=== PATIENT | female | born 1995 | race Two or more races ===

== ENCOUNTER → 2016-09-14 | Outpatient (CLI) | payer MEDICAID ==
[~2016-09-14] MED LIST: PREN-145 OR
[2016-09-14 08:56] LABS: Basophils # (auto) 0 uL; Basophils % (auto) 0.4 % (0.0-2.0); Eosinophils # (auto) 0.1 uL; Eosinophils % (auto) 1.4 % (0.0-7.0); Hematocrit 34.9 % (36.0-46.0); Hemoglobin 11.6 g/dL (12.2-16.2); Lymphocytes # (auto) 1.9 uL; Lymphocytes % (auto) 21.1 % (10.0-50.0); Mean Corpuscular Hgb Conc. 33.3 g/dL (32.0-36.0); Mean Platelet Volume 9.8 fL (7.4-10.4); Monocytes # (auto) 0.6 uL; Monocytes % (auto) 6.8 % (0.0-12.0); Neutrophils # (auto) 6.5 uL; Neutrophils % (auto) 70.3 % (37.0-80.0); Platelet Count (auto) 235 10^3/uL (140-450); Red Cell Distribution Width 14.3 % (11.6-16.0); White Blood Cell 9.2 10^3/uL (4.4-10.8)
== END | disposition home or self-care (01) ==
LOC: LAB 08:00
PROVIDERS: ATTEND Obstetrics & Gynecology
DX: O99.810 Abnormal glucose complicating pregnancy (principal); Z34.80 Encounter for supervision of other normal pregnancy, unspecified trimester
CPT/HCPCS: 36415; 82951; 85025

== ENCOUNTER 2016-11-03 12:10 | Observation (INO) | payer MEDICAID ==
[~2016-11-03] VITALS: Ht 152.4 cm; Wt 69.9 kg
[2016-11-03] MEDS ORDERED: ACET1CAP14 PO (12:42)
[2016-11-03] MEDS ORDERED: LACTATED RINGER'S 1,000 ML IV ONE (13:00)
[2016-11-03 13:30] LABS: Urine Bilirubin Negative (Negative); Urine Blood Negative /uL (Negative); Urine Color Yellow (Yellow); Urine Glucose Normal (Normal); Urine Mucus FEW (None Seen); Urine Nitrite Negative (Negative); Urine RBC 3 /hpf (0 - 4); Urine Squamous Epithelial Cell MOD /hpf (<5)
[2016-11-03 13:35] LABS: Urine Ketone 4+ (Negative)
== END 2016-11-03 14:40 | disposition home or self-care (01) | DRG 566 ==
LOC: LDRP 12:10
PROVIDERS: ADMIT Obstetrics & Gynecology; ATTEND Obstetrics & Gynecology
DX: O21.2 Late vomiting of pregnancy (principal); E86.0 Dehydration; O26.893 Other specified pregnancy related conditions, third trimester; K52.9 Noninfective gastroenteritis and colitis, unspecified; Z3A.34 34 weeks gestation of pregnancy; R50.9 Fever, unspecified
CPT/HCPCS: 59025; 81001; 81002; 96360; G0378; 96361

== ENCOUNTER → 2016-11-09 | Outpatient (CLI) | payer MEDICAID ==
[~2016-11-09] MED LIST changes: +ACET1CAP14 PO
[2016-11-09 14:37] LABS: Basophils # (auto) 0 uL; Basophils % (auto) 0.3 % (0.0-2.0); Eosinophils # (auto) 0.1 uL; Eosinophils % (auto) 0.9 % (0.0-7.0); Hemoglobin 11.5 g/dL (12.2-16.2); Lymphocytes # (auto) 1.7 uL; Lymphocytes % (auto) 17.9 % (10.0-50.0); Mean Corpuscular Hgb Conc. 32.8 g/dL (32.0-36.0); Mean Corpuscular Volume 85.4 fL (80.0-100.0); Mean Platelet Volume 8.8 fL (7.4-10.4); Monocytes # (auto) 0.6 uL; Monocytes % (auto) 6.5 % (0.0-12.0); Neutrophils % (auto) 74.4 % (37.0-80.0); Platelet Count (auto) 275 10^3/uL (140-450); White Blood Cell 9.4 10^3/uL (4.4-10.8)
== END | disposition home or self-care (01) ==
LOC: LAB 14:25
PROVIDERS: ATTEND Obstetrics & Gynecology
DX: Z11.3 Encounter for screening for infections with a predominantly sexual mode of transmission (principal); Z34.80 Encounter for supervision of other normal pregnancy, unspecified trimester; N76.0 Acute vaginitis
CPT/HCPCS: 36415; 85025; 87081

== ENCOUNTER 2024-10-17 13:30 | Observation (INO) | payer MEDICAID ==
--- NOTE | 2024-10-17 14:35 | DVH ---
LIMITED OB ULTRASOUND > 14 WKS: HISTORY: post dates 40.6 TECHNIQUE: Multiple real-time grayscale images of the gravid uterus with duplex Doppler color flow an d M-mode spectral analysis. TRANSDUCER: Transabdominal. FINDINGS: IUP single live fetus at 36 weeks 3 days based on composite averages of the BPD, head circumference, abdominal circumference and femur length Estimated weight 2957 grams heart rate 169 beats per minute JUANA 13.3 cm Cervix measures 3.7 cm. Cephalic Presentation Posterior Placenta without previa or abruption. IMPRESSION: IUP single live fetus at 36 weeks 3 days AUA corresponding to an KIERRA of 11/11/2024
--- NOTE | 2024-10-17 15:16 | DVH ---
BIOPHYSICAL PROFILE HISTORY: post dates 40.6 TECHNIQUE: Multiple real-time grayscale sonographic images through the gravid uterus of the fetus wi th duplex Doppler color flow and M-mode spectral analysis FINDINGS: BIOPHYSICAL PROFILE: breathing score: 2 movement score: 2 tone score: 2 Quantitative JUANA score: 2 (JUANA: 15.9 Cm.) Total score: 8 The cervix was not seen Single live fetus in cephalic presentation. heart rate 153 beats per minute. Grade II posterior placenta without previa or abruption IMPRESSION: Biophysical profile score: 8
[2024-10-17 15:52] LABS: Basophils # (auto) 0.1 10 ^3/uL (0-0.2); Basophils % (auto) 0.6 % (0.0-2.0); Eosinophils # (auto) 0.2 10 ^3/uL (0-0.8); Hemoglobin 11.5 g/dL (12.2-16.2); Lymphocytes # (auto) 1.3 10 ^3/uL (0.4-5.4); Lymphocytes % (auto) 13.8 % (10.0-50.0); Mean Corpuscular Hemoglobin 28.3 pg (28.0-32.0); Mean Corpuscular Volume 85.9 fL (80.0-100.0); Monocytes # (auto) 0.6 10 ^3/uL (0-1.3); Monocytes % (auto) 6.7 % (0.0-12.0); Neutrophils # (auto) 7.2 10 ^3/uL (1.6-8.6); Neutrophils % (auto) 76.9 % (37.0-80.0); Nucleated Red Blood Cells % 0.1 %; Platelet Count (auto) 245 10^3/uL (140-450); Red Blood Cells 4.08 10^6/uL (4.0-5.20); Red Cell Distribution Width 15.3 % (11.8-14.3); White Blood Cell 9.4 10^3/uL (4.4-10.8)
[2024-10-17 16:02] LABS: Urine Bacteria FEW /hpf (None Seen); Urine Blood Negative /uL (Negative); Urine Clarity Turbid (Clear); Urine Color Yellow (Yellow); Urine Mucus FEW (None Seen); Urine Protein, UAD 1+ (Negative); Urine Specific Gravity 1.035 (1.001-1.035); Urine Squamous Epithelial Cell MOD /hpf (<5); Urine Urobilinogen Normal (Negative); Urine WBC 14 /HPF (0-5); Urine pH 6.5 (5.0-9.0)
[2024-10-17 16:13] LABS: Albumin 4.1 g/dL (3.2-4.8); Anion Gap 11 (5-15); BUN/Creatinine Ratio 25.6 (10.0-20.0); Bilirubin, Total 0.3 mg/dL (0.2-1.0); Blood Urea Nitrogen 11 mg/dL (9-23); Calcium 10.2 mg/dL (8.7-10.4); Carbon Dioxide 23 mmol/L (20-31); Chloride 105 mmol/L (98-107); Glucose 92 mg/dL (74-106); Potassium 3.7 mmol/L (3.5-5.1); Sodium 139 mmol/L (136-145); Total Protein 6.8 g/dL (5.7-8.2); Uric Acid 5.5 mg/dL (3.1-7.8)
[2024-10-17 16:16] LABS: Alanine Aminotransferase 59 U/L (7-40); Alkaline Phosphatase 145 U/L (46-116); Aspartate Aminotransferase 55 U/L (13-40)
[2024-10-17 16:22] LABS: Amphetamine Screen, Urine Neg (NEGATIVE); Barbiturate Scree,Urine Neg (NEGATIVE); Benzodiazephine Screen, Urine Neg (NEGATIVE); Cannabinoid Screen, Urine Neg (NEGATIVE); Cocaine Screen, Urine Neg (NEGATIVE); Opiate Scree,Urine Neg (NEGATIVE); Phencyclidine Screen, Urine Neg (NEGATIVE)
[2024-10-17 16:28] LABS: INR 0.93 (0.9-1.15); Partial Thromboplastin Time 27.9 SEC (24.5-34.5); Prothrombin Time 9.9 sec (9.3-11.8)
--- NOTE | 2024-10-18 11:52 | DVHDS2 ---
Physician Discharge Progress N Final Diagnosis: cramping 40+wks Operations or Procedures: Operations or Procedures nst 40wks,sono Condition on Discharge: Good Disposition: Home Discharge Instructions: Diet: Regular Activity: No Restrictions, As Tolerated Medications: na Follow Up Care: Specialist: fu in 1 day for induction Discharge Statement: "Patient was advised to return to the ER or call 911 if any headaches, dizziness, shortness of breath, chest pain, abdominal pain, bleeding, fevers, or worsening of medical condition. Patient was counseled about treatment plan, medications, possible side effects, patientverbalized understanding. All questions were answered to the best of my ability. This discharge took greater then 30 minutes in planning, reviewing documentation, counseling the patient, and discussing with other team members." Visit Coding OBGYN Date of Service: Oct 17, 2024 Billing Provider: PETE MONROE DO PNEUMATIC DRUM SANDER Common Visit Codes: [id number] INP/OBS CARE(HIGH) PNEUMATIC DRUM SANDER Procedure Codes: 15424-16- NON-STRESS TEST PETE MONROE DO Oct 18, 2024 11:51
[2024-10-20 19:06] LABS: Rubella Antibodies, IgG 1.03 index (Immune >0.99)
== END 2024-10-17 16:31 | disposition home or self-care (01) ==
LOC: LDRP 13:30
PROVIDERS: ADMIT Obstetrics & Gynecology; ATTEND Obstetrics & Gynecology
DX: O48.0 Post-term pregnancy (principal); O36.8130 Decreased fetal movements, third trimester, not applicable or unspecified; O26.893 Other specified pregnancy related conditions, third trimester; R10.9 Unspecified abdominal pain; Z3A.40 40 weeks gestation of pregnancy; Z79.899 Other long term (current) drug therapy
CPT/HCPCS: 36415; 59025; 76805; 76819; 80053; 80307; 81001; 81002; 84550; 85025; 85610; 85730; 86703; 86762; 86780; 86803; 87340; 94760; G0378

== ENCOUNTER 2024-10-18 23:00 | Inpatient (IN) | payer MEDICAID ==
[~2024-10-18] VITALS: Ht 152.4 cm; Wt 83.0 kg
[2024-10-18] MEDS ORDERED: LIDOCAINE 2%HCL (LOCAL ANESTH.) INJ 20ML MDV IJ PRN (23:30)
[2024-10-19 00:05] LABS: Basophils # (auto) 0.1 10 ^3/uL (0-0.2); Basophils % (auto) 0.6 % (0.0-2.0); Eosinophils # (auto) 0.2 10 ^3/uL (0-0.8); Eosinophils % (auto) 2.3 % (0.0-7.0); Hematocrit 34.7 % (36.0-46.0); Hemoglobin 11.5 g/dL (12.2-16.2); Lymphocytes # (auto) 1.5 10 ^3/uL (0.4-5.4); Lymphocytes % (auto) 15.2 % (10.0-50.0); Mean Corpuscular Hemoglobin 28.1 pg (28.0-32.0); Mean Corpuscular Hgb Conc. 33.1 g/dL (32.0-36.0); Mean Corpuscular Volume 84.9 fL (80.0-100.0); Monocytes # (auto) 0.7 10 ^3/uL (0-1.3); Monocytes % (auto) 7.1 % (0.0-12.0); Neutrophils # (auto) 7.4 10 ^3/uL (1.6-8.6); Neutrophils % (auto) 74.8 % (37.0-80.0); Nucleated Red Blood Cells % 0.1 %; Platelet Count (auto) 284 10^3/uL (140-450); Red Blood Cells 4.08 10^6/uL (4.0-5.20); Red Cell Distribution Width 15.3 % (11.8-14.3); White Blood Cell 9.9 10^3/uL (4.4-10.8)
--- NOTE | 2024-10-19 00:21 | DVHHP2 ---
OB CC & HPI Date Date of Admission: Oct 18, 2024 Patient Identification: : 4 Para: 3 EDC: Oct 11, 2024 EGA: 41weeks Chief Complaints: Reason for admission: induction of labor Indication for induction: post dates Admission Nurse Assessment Rev: Yes History of Present Complaints 29yo G4,3003 @ 41w 0d EGA presents to the Place for IOL. Normal movements, no leakage of fluid or vaginal bleeding, no MILLER or vision changes Received care in [place], [place]. LMP: 01/05/24 EDC: 10/11/24 by LMP c/w 8weeks 6d US Past Medical History Cardiac: No pertinent Hx Pulmonary: No pertinent Hx Central Nervous System: No pertinent Hx GI: No pertinent Hx Hemotology/Oncology: No pertinent Hx Hepatobiliary: No pertinent Hx Psychiatric: No pertinent Hx Musculoskeletal: No pertinent Hx Rheumotologic: No pertinent Hx Infectious Disease: No peritnent Hx ENT: No pertinent Hx Renal/: No pertinent Hx Endocrine: No pertinent Hx Dermatology: No pertinent Hx Past Surgical History: No pertinent Hx OB History OB History Care: Other (Fairly good care in [facility], moved to this [facility] in July. Missed GBS screening ) Ultrasounds: Normal mid trimester US Obstetrical Complications: None Medical Complications: None Allergies: Coded Allergies: NO KNOWN ALLERGIES (Unverified , 12/13/16) Home Meds Reported Medications Acetaminophen (Tylenol) 325 Mg Cap, 325 MG PO, CAP 11/03/16 Vit W/ Ferrous Fumara (PNV FOLIC ACID + IRON MUL) + Iron Tab, 1 IRON OR DAILY, TAB 09/14/14 Current Medications Current Medications Medications (Trade) Dose Ordered Sig/Zohra Route PRN Reason Start Time Stop Time Status Last Admin Lactated Ringer's 1,000 ml @ 125 mls/hr Q8H IV 10/18/24 23:30 Nalbuphine HCl (Nubain) 10 mg Q4HP PRN IV MODERATE PAIN (4-6 PAIN SCALE) 10/18/24 23:30 Penicillin G Potassium [id number] units/Dextrose 50 ml @ 100 mls/hr Q4H IV 10/19/24 03:30 Witch Yari (Tucks) 1 pad PRN PRN TOP PERINEAL AREA DISCOMFORT 10/18/24 23:30 Sodium Lauryl Sulfate (Phisoderm) 240 ml PRN PRN TOP PERINEAL AREA DISCOMFORT 10/18/24 23:30 Benzocaine (Dermoplast) 1 applic PRN PRN TOP PERINEAL AREA DISCOMFORT 10/18/24 23:30 Misoprostol (Cytotec) 50 mcg Q4HPRN PRN PO CERVICAL RIPENING 10/18/24 23:30 Lidocaine HCl (Xylocaine) 40 ml ONCE PRN IJ PERINEAL AREA DISCOMFORT 10/18/24 23:30 Family & Social History Family/Social History Past Family/Social History: Mother with Type 2 diabetes. Son born with hydronephrosis. Blood Type: O+ Rubella: immune RPR/VDRL: Negative GBS Status: Unknown HBsAG: Negative Review of Systems Constitutional: No symptom reported Ears, Nose, & Throat: No symptom reported Eyes: No symptom reported Pulmonary/Respiratory: No symptom reported Cardiovascular: No symptom reported Gastrointestinal: No symptom reported Genitourinary: No symptom reported Musculoskeletal: No symptom reported Skin: No symptom reported Psychiatric: No symptom reported Endocrine: No symptom reported Hemotologic/Lymphatic: No symptom reported OB Admission Exam Physical Exam HEENT: TMs Normal, Fontanelles Normal, Nasal Mucosa Normal, Eyes non-injected, Oropharynx Normal, PERRLA, Moist Membranes, EOMI Heart: Rhythm Normal Lungs: Clear Abdomen: Non tender Extremities: Normal Reflexes: Normal Cervical Dilatation: 1cm Effacement: 25% Station: -3 Membranes: Intact Heart Rate: 140's Accelerations: Accelerations Present Decelerations: No Decelerations Detention Variability: Average (6-25) Contractions on Admission: >10 Minutes Apart OB Plan Plan Admitting Diagnosis: Induction of Labor Plan: Induction Induction Methd: Misoprostol protocol Other Plan: IOL process, cervical ripening with medication, cervical ripening balloon, oxytocin etc including the risks, benefits and options discussed with the patient & partner. Informed consent obtained. Risk of pain, bleeding, infection, discussed with the patient and partner Consent for possible blood transfusion obtained. All questions answered. Admit to Place for scheduled IOL Routine L&D admission orders Misoprostol per protocol EFM per policy & protocol Intrauterine resuscitation PRN GBS prophylaxis with Penicillin IVPB (To be started when in labor; at 4cm cervical dilation) Labor analgesia PRN Encourage frequent position change and ambulation to facilitate labor & d escent Supportive Care Anticipate Managing in collaboration / consultation with Dr. Reynolds Visit Coding OBGYN Date of Service: Oct 18, 2024 Billing Provider: JOEY ALEMAN CNM SPORTS INFORMATION DIRECTOR Common Visit Codes: [id number] INP/OBS CARE (HIGH) SPORTS INFORMATION DIRECTOR Procedure Codes: 76754-05- NON-STRESS TEST JOEY ALEMAN CNM Oct 19, 2024 00:21
[2024-10-19 00:25] LABS: INR 0.93 (0.9-1.15); Prothrombin Time 9.9 sec (9.3-11.8)
[2024-10-19 00:26] LABS: Albumin 4.1 g/dL (3.2-4.8); Anion Gap 11 (5-15); BUN/Creatinine Ratio 15.6 (10.0-20.0); Blood Urea Nitrogen 12 mg/dL (9-23); Calcium 9.3 mg/dL (8.7-10.4); Carbon Dioxide 21 mmol/L (20-31); Potassium 3.5 mmol/L (3.5-5.1); Sodium 139 mmol/L (136-145); Total Protein 6.7 g/dL (5.7-8.2)
[2024-10-19 00:27] LABS: Bilirubin, Total 0.3 mg/dL (0.2-1.0)
[2024-10-19 00:28] LABS: Alanine Aminotransferase 60 U/L (7-40); Alkaline Phosphatase 148 U/L (46-116); Aspartate Aminotransferase 63 U/L (13-40); Chloride 107 mmol/L (98-107); Glucose 117 mg/dL (74-106)
[2024-10-19 00:40] LABS: Urine Bacteria FEW /hpf (None Seen); Urine Blood TRACE /uL (Negative); Urine Clarity Turbid (Clear); Urine Color Yellow (Yellow); Urine Mucus FEW (None Seen); Urine Protein, UAD 1+ (Negative); Urine Specific Gravity 1.039 (1.001-1.035); Urine Squamous Epithelial Cell MOD /hpf (<5); Urine Urobilinogen 2 mg/dL (Negative); Urine WBC 2 /HPF (0-5)
[2024-10-19] MEDS: LACTATED RINGER'S 1,000 ML IV SCH (00:58)
[2024-10-19] MEDS: miSOPROStol 50 MCG per PRE-CUT 1/2 TAB PO PRN (01:00)
[2024-10-19 01:15] LABS: Amphetamine Screen, Urine Neg (NEGATIVE); Barbiturate Scree,Urine Neg (NEGATIVE); Benzodiazephine Screen, Urine Neg (NEGATIVE); Cocaine Screen, Urine Neg (NEGATIVE)
[2024-10-19 01:16] LABS: Cannabinoid Screen, Urine Neg (NEGATIVE); Opiate Scree,Urine Neg (NEGATIVE); Phencyclidine Screen, Urine Neg (NEGATIVE)
[2024-10-19 01:41] LABS: Protein, Urine 45.7 mg/dL (1-14)
[2024-10-19 01:44] LABS: Creatinine, Urine 243.85 mg/dL (30.0-125.0); Urine Protein/Creatinine Ratio 0.19
--- NOTE | 2024-10-19 06:19 | DVHPN2 ---
GAIL Labor Progress Note Date and Time Seen Date Seen: Oct 19, 2024 Time Seen: 05:00 Subjective Patient reports: No new complaints Objective Vital Signs VSS Monitoring Method Monitoring Method: External Heart Rate Heart Rate Baseline: 130 Heart Rate Variability: Moderate Presence of FHR Accelerations: Yes Presence of FHR Decelerations: No Changes in Trends of Patterns: No Are all 5 Components of the FH: Yes Contractions Contractions Frequency: Other (3-6 in 10minutes) Duration of Contraction: 80 Contractions Intensity: Moderate Contractions Resting Tone: Relaxed Membranes Membranes: Intact Vaginal Exam Vag Exam Deferred: No Vaginal Exam Dilation: 2 Vaginal Exam Effacement: 50 Vaginal Exam Station: -1 Vaginal Exam Presentation: VTX Vaginal Exam Show: None Medications Medications - Pitocin: No Medication - Epidural: No Medication - Other Misoprostol Dose #1 given at 01:00 Lab Results Lab Results Current Medications Medications (Trade) Dose Ordered Sig/Zohra Start Time Stop Time Status Last Admin Dose Admin Lactated Ringer's 1,000 ml @ 125 mls/hr Q8H 10/18/24 23:30 10/19/24 08:55 125 MLS/HR Nalbuphine HCl (Nubain) 10 mg Q4HP PRN 10/18/24 23:30 Penicillin G Potassium 50 ml @ 100 mls/hr ONCE ONCE 10/18/24 23:30 10/18/24 23:59 DC 10/19/24 08:54 100 MLS/HR Penicillin G Potassium 1197837 units/Dextrose 50 ml @ 100 mls/hr Q4H 10/19/24 03:30 10/19/24 13:34 DC 10/19/24 13:28 100 MLS/HR Witch Yari (Tucks) 1 pad PRN PRN 10/18/24 23:30 10/19/24 08:54 1 PAD Sodium Lauryl Sulfate (Phisoderm) 240 ml PRN PRN 10/18/24 23:30 10/19/24 08:54 240 ML Benzocaine (Dermoplast) 1 applic PRN PRN 10/18/24 23:30 10/19/24 08:54 1 APPLIC Misoprostol (Cytotec) 50 mcg Q4HPRN PRN 10/18/24 23:30 10/19/24 01:00 50 MCG Lidocaine HCl (Xylocaine) 40 ml ONCE PRN 10/18/24 23:30 Diphenoxylate HCl/ Atropine (Lomotil Tablet) 5 mg ONCE ONCE 10/19/24 07:15 10/19/24 07:57 DC 10/19/24 08:30 5 MG Oxytocin 1,000 ml @ 6 ml/hr Q24H 10/19/24 12:15 10/19/24 13:04 6 ML/HR Terbutaline Sulfate (Brethine Inj) 0.25 mg ONCE PRN 10/19/24 12:15 Oxytocin 500 ml @ 999 mls/hr Q31M ONCE 10/19/24 12:15 10/19/24 12:45 DC Oxytocin 500 ml @ 125 mls/hr Q4H ONCE 10/19/24 12:45 10/19/24 16:44 DC Penicillin G Potassium 1498721 units/Dextrose 50 ml @ 100 mls/hr Q4H 10/19/24 17:30 10/19/24 17:47 100 MLS/HR Laboratory Tests Test 10/19/24 08:32 10/18/24 23:40 Range/Units Sodium Level 140 136-145 mmol/L Potassium Level 3.8 3.5-5.1 mmol/L Chloride Level 107 98-107 mmol/L Carbon Dioxide Level 22 20-31 mmol/L Anion Gap 11 5-15 Blood Urea Nitrogen 8 L 9-23 mg/dL Creatinine 0.66 0.550-1.02 mg/dL Glomerular Filtration Rate Calc 121 >90 mL/min BUN/Creatinine Ratio 12.1 10.0-20.0 Serum Glucose 104 74-106 mg/dL Uric Acid 5.8 3.1-7.8 mg/dL Calcium Level 9.7 8.7-10.4 mg/dL Total Bilirubin 0.4 0.2-1.0 mg/dL Aspartate Amino Transferase (AST) 55 H 13-40 U/L Alanine Aminotransferase (ALT) 59 H 7-40 U/L Alkaline Phosphatase 161 H 46-116 U/L Total Protein 7.1 5.7-8.2 g/dL Albumin 4.2 3.2-4.8 g/dL White Blood Count 9.9 4.4-10.8 10^3/uL Red Blood Count 4.08 4.0-5.20 10^6/uL Hemoglobin 11.5 L 12.2-16.2 g/dL Hematocrit 34.7 L 36.0-46.0 % Mean Corpuscular Volume 84.9 80.0-100.0 fL Mean Corpuscular Hemoglobin 28.1 28.0-32.0 pg Mean Corpuscular Hemoglobin Concent 33.1 32.0-36.0 g/dL Red Cell Distribution Width 15.3 H 11.8-14.3 % Platelet Count 284 140-450 10^3/uL Mean Platelet Volume 9.8 6.9-10.8 fL Neutrophils (%) (Auto) 74.8 37.0-80.0 % Lymphocytes (%) (Auto) 15.2 10.0-50.0 % Monocytes (%) (Auto) 7.1 0.0-12.0 % Eosinophils (%) (Auto) 2.3 0.0-7.0 % Basophils (%) (Auto) 0.6 0.0-2.0 % Neutrophils # (Auto) 7.4 1.6-8.6 10 ^3/uL Lymphocytes # (Auto) 1.5 0.4-5.4 10 ^3/uL Monocytes # (Auto) 0.7 0-1.3 10 ^3/uL Eosinophils # (Auto) 0.2 0-0.8 10 ^3/uL Basophils # (Auto) 0.1 0-0.2 10 ^3/uL Nucleated Red Blood Cells 0.1 % Prothrombin Time 9.9 9.3-11.8 sec Prothrombin Time INR 0.93 0.9-1.15 Activated Partial Thromboplast Time 27.0 24.5-34.5 SEC Urine Color Yellow Yellow Urine Clarity Turbid H Clear Urine pH 6.0 5.0-9.0 Urine Specific [place] 1.039 H 1.001-1.035 Urine Protein 1+ H Negative Urine Ketones 1+ H Negative Urine Blood Trace H Negative /uL Urine Nitrite Negative Negative Urine Bilirubin Negative Negative Urine Urobilinogen 2 H Negative mg/dL Urine Leukocyte Esterase Negative Negative /uL Urine RBC 3 0 - 4 /hpf Urine Microscopic WBC 2 0-5 /HPF Urine Squamous Epithelial Cells Mod <5 /hpf Urine Calcium Oxalate Crystals Mod None Seen Urine Bacteria Few H None Seen /hpf Urine Mucus Few None Seen Urine Creatinine 243.85 H 30.0-125.0 mg/dL Urine Protein/Creatinine Ratio 0.19 Urine Glucose Normal Normal mg/dL Urine Total Protein 45.7 H 1-14 mg/dL Urine Opiates Screen Neg NEGATIVE Urine Fentanyl Screen Neg NEGATIVE Urine Barbiturates Screen Neg NEGATIVE Urine Phencyclidine Screen Neg NEGATIVE Urine Amphetamines Screen Neg NEGATIVE Urine Benzodiazepines Screen Neg NEGATIVE Urine Cocaine Screen Neg NEGATIVE Urine Cannabinoids Screen Neg NEGATIVE Chlamydia trachomatis (PRECIOUS) Pending Neisseria gonorrhoeae (PRECIOUS) Pending Assessment Assessment IUP at 41weeks IOL for above Category 1 FHR Tracing Plan Plan Continue current management plan. Supportive care Anticipate Will consult with Dr Gail DONALDSON Plan discussed with: Patient Visit Coding OBGYN Date of Service: Oct 19, 2024 Billing Provider: JOEY ALEMAN CNM INDUSTRIAL X RAY OPERATOR Common Visit Codes: [id number] INP/OBS CARE(HIGH) INDUSTRIAL X RAY OPERATOR Procedure Codes: 35083-77- NON-STRESS TEST JOEY ALEMAN CNM Oct 19, 2024 06:19
--- NOTE | 2024-10-19 06:54 | DVHPN2 ---
Chief Complaints Patient reports: No new complaints Nursing reports: No new complaints Objective Medications Current Medications Medications (Trade) Dose Ordered Sig/Zohra Route PRN Reason Start Time Stop Time Status Last Admin Benzocaine (Dermoplast) 1 applic PRN PRN TOP PERINEAL AREA DISCOMFORT 10/18/24 23:30 Lactated Ringer's 1,000 ml @ 125 mls/hr Q8H IV 10/18/24 23:30 10/19/24 02:15 Lidocaine HCl (Xylocaine) 40 ml ONCE PRN IJ PERINEAL AREA DISCOMFORT 10/18/24 23:30 Misoprostol (Cytotec) 50 mcg Q4HPRN PRN PO CERVICAL RIPENING 10/18/24 23:30 10/19/24 01:00 Nalbuphine HCl (Nubain) 10 mg Q4HP PRN IV MODERATE PAIN (4-6 PAIN SCALE) 10/18/24 23:30 Penicillin G Potassium 8004163 units/Dextrose 50 ml @ 100 mls/hr Q4H IV 10/19/24 03:30 Sodium Lauryl Sulfate (Phisoderm) 240 ml PRN PRN TOP PERINEAL AREA DISCOMFORT 10/18/24 23:30 Witch Yari (Tucks) 1 pad PRN PRN TOP PERINEAL AREA DISCOMFORT 10/18/24 23:30 Others ve-2cm/60/-2 Studies Laboratory Tests 10/18/24 23:40 Test 10/18/24 23:40 Range/Units Serum Glucose 117 H 74-106 mg/dL Ass/Plan Assessment iol Plan rec 2 cytotec Visit Coding OBGYN Date of Service: Oct 19, 2024 Billing Provider: PETE MONROE DO BIAS CUTTING MACHINE OPERATOR VERTICAL Common Visit Codes: 65329-MHE/OBS SAME DATE (HIGH) BIAS CUTTING MACHINE OPERATOR VERTICAL Procedure Codes: 15977-58- NON-STRESS TEST PETE MONROE DO Oct 19, 2024 06:54
[2024-10-19] MEDS: DIPHENOXYLATE W/ATROPINE 2.5 MG TAB PO ONE (08:30)
[2024-10-19] MEDS: PHISODERM TOP SOLN 240ML BTL TOP PRN (08:54)
[2024-10-19] MEDS: WITCH HAZEL-GLYCERIN PAD TOP PRN (08:54)
[2024-10-19] MEDS: PENICILLIN G POT 5MIL/D5 50ML 50 ML IV ONE (08:54)
[2024-10-19] MEDS: DERMOPLAST 60ML BOTTLE TOP PRN (08:54)
[2024-10-19 09:40] LABS: Albumin 4.2 g/dL (3.2-4.8); Anion Gap 11 (5-15); BUN/Creatinine Ratio 12.1 (10.0-20.0); Calcium 9.7 mg/dL (8.7-10.4); Carbon Dioxide 22 mmol/L (20-31); Chloride 107 mmol/L (98-107); Glucose 104 mg/dL (74-106); Potassium 3.8 mmol/L (3.5-5.1); Sodium 140 mmol/L (136-145); Total Protein 7.1 g/dL (5.7-8.2)
[2024-10-19 09:41] LABS: Bilirubin, Total 0.4 mg/dL (0.2-1.0)
[2024-10-19 09:48] LABS: Alanine Aminotransferase 59 U/L (7-40); Alkaline Phosphatase 161 U/L (46-116); Aspartate Aminotransferase 55 U/L (13-40); Blood Urea Nitrogen 8 mg/dL (9-23)
[2024-10-19 09:57] LABS: Uric Acid 5.8 mg/dL (3.1-7.8)
[2024-10-19] MEDS ORDERED: TERBUTALINE SULFATE 1 MG/ML 1ML VIAL SC PRN (12:15)
[2024-10-19] MEDS: LACT. RINGERS/OXYTOCIN 20UNITS 1,000 ML IV SCH (13:04)
[2024-10-19] MEDS: PENICILLIN G POTASSIUM 2,500,000 UNITS in D5W 5% 50 ML IV SCH ×2 (13:28→17:47)
--- NOTE | 2024-10-19 13:56 | DVHPN2 ---
Chief Complaints Patient reports: No new complaints Nursing reports: No new complaints Objective Medications Current Medications Medications (Trade) Dose Ordered Sig/Zohra Route PRN Reason Start Time Stop Time Status Last Admin Benzocaine (Dermoplast) 1 applic PRN PRN TOP PERINEAL AREA DISCOMFORT 10/18/24 23:30 10/19/24 08:54 Lactated Ringer's 1,000 ml @ 125 mls/hr Q8H IV 10/18/24 23:30 10/19/24 08:55 Lidocaine HCl (Xylocaine) 40 ml ONCE PRN IJ PERINEAL AREA DISCOMFORT 10/18/24 23:30 Misoprostol (Cytotec) 50 mcg Q4HPRN PRN PO CERVICAL RIPENING 10/18/24 23:30 10/19/24 01:00 Nalbuphine HCl (Nubain) 10 mg Q4HP PRN IV MODERATE PAIN (4-6 PAIN SCALE) 10/18/24 23:30 Oxytocin 1,000 ml @ 6 ml/hr Q24H IV 10/19/24 12:15 10/19/24 13:04 Penicillin G Potassium 2587694 units/Dextrose 50 ml @ 100 mls/hr Q4H IV 10/19/24 17:30 UNV Sodium Lauryl Sulfate (Phisoderm) 240 ml PRN PRN TOP PERINEAL AREA DISCOMFORT 10/18/24 23:30 10/19/24 08:54 Terbutaline Sulfate (Brethine Inj) 0.25 mg ONCE PRN SC Uterine tachysystole 10/19/24 12:15 Witch Yari (Tucks) 1 pad PRN PRN TOP PERINEAL AREA DISCOMFORT 10/18/24 23:30 10/19/24 08:54 Others VE-3CM/60/-2 Studies Laboratory Tests 10/19/24 08:32 10/18/24 23:40 Test 10/19/24 08:32 Range/Units Serum Glucose 104 74-106 mg/dL Ass/Plan Assessment iol Plan CONT W/PITOCIN Visit Coding OBGYN Date of Service: Oct 19, 2024 Billing Provider: PETE MONROE DO MASH TUB COOKER Common Visit Codes: 21206-PCC/OBS SAME DATE (HIGH) MASH TUB COOKER Procedure Codes: 38341-02- NON-STRESS TEST PETE MONROE DO Oct 19, 2024 13:56
--- NOTE | 2024-10-19 20:17 | DVHPN2 ---
GAIL Labor Progress Note Date and Time Seen Date Seen: Oct 19, 2024 Time Seen: 19:05 Subjective Patient reports: No new complaints Objective Vital Signs VSS Monitoring Method Monitoring Method: External Heart Rate Heart Rate Baseline: 145 Heart Rate Variability: Moderate Presence of FHR Accelerations: Yes Presence of FHR Decelerations: No Changes in Trends of Patterns: No Are all 5 Components of the FH: Yes Contractions Contractions Frequency: Other (Q 1-4minutes) Duration of Contraction: 60 Contractions Intensity: Moderate Contractions Resting Tone: Relaxed Membranes Membranes: Intact Vaginal Exam Vag Exam Deferred: Yes Medications Medications - Pitocin: Yes (@ 8mU/minute) Medication - Epidural: No Lab Results Lab Results Vital Signs Date Time Temp Pulse Resp B/P (MAP) Pulse Ox O2 Delivery O2 Flow Rate FiO2 10/20/24 05:24 Room Air 10/19/24 23:00 82 19 111/64 I & O 10/20/24 07:00 Intake Total 100 ml Balance 100 ml Intake IV Total 100 ml Current Medications Medications (Trade) Dose Ordered Sig/Zohra Start Time Stop Time Status Last Admin Dose Admin Lactated Ringer's 1,000 ml @ 125 mls/hr Q8H 10/18/24 23:30 10/20/24 03:24 125 MLS/HR Nalbuphine HCl (Nubain) 10 mg Q4HP PRN 10/18/24 23:30 10/20/24 03:30 DC 10/19/24 22:25 10 MG Penicillin G Potassium 50 ml @ 100 mls/hr ONCE ONCE 10/18/24 23:30 10/18/24 23:59 DC 10/19/24 08:54 100 MLS/HR Penicillin G Potassium [id number] units/Dextrose 50 ml @ 100 mls/hr Q4H 10/19/24 03:30 10/19/24 13:34 DC 10/19/24 13:28 100 MLS/HR Witch Yari (Tucks) 1 pad PRN PRN 10/18/24 23:30 10/19/24 08:54 1 PAD Sodium Lauryl Sulfate (Phisoderm) 240 ml PRN PRN 10/18/24 23:30 10/19/24 08:54 240 ML Benzocaine (Dermoplast) 1 applic PRN PRN 10/18/24 23:30 10/19/24 08:54 1 APPLIC Misoprostol (Cytotec) 50 mcg Q4HPRN PRN 10/18/24 23:30 10/20/24 03:30 DC 10/19/24 01:00 50 MCG Diphenoxylate HCl/ Atropine (Lomotil Tablet) 5 mg ONCE ONCE 10/19/24 07:15 10/20/24 03:30 DC 10/19/24 08:30 5 MG Oxytocin 1,000 ml @ 6 ml/hr Q24H 10/19/24 12:15 10/20/24 03:30 DC 10/19/24 13:04 6 ML/HR Oxytocin 500 ml @ 999 mls/hr Q31M ONCE 10/19/24 12:15 10/20/24 03:30 DC 10/20/24 03:22 999 MLS/HR Oxytocin 500 ml @ 125 mls/hr Q4H ONCE 10/19/24 12:45 10/20/24 03:30 DC 10/20/24 03:23 125 MLS/HR Penicillin G Potassium 0796602 units/Dextrose 50 ml @ 100 mls/hr Q4H 10/19/24 17:30 10/20/24 03:30 DC 10/19/24 21:41 100 MLS/HR Acetaminophen (Tylenol Tablet) 650 mg ONCE ONCE 10/19/24 21:30 10/20/24 03:30 DC 10/19/24 21:40 650 MG Methylergonovine Maleate (Methergine) 0.2 mg ONCE ONCE 10/20/24 00:30 10/20/24 03:30 DC Naloxone HCl (Narcan) 0.2 mg PRN ONCE 10/20/24 02:00 10/20/24 03:30 DC Ephedrine Sulfate (ePHEDrine SULFATE) 10 mg PRN ONCE 10/20/24 02:00 10/20/24 03:30 DC Fentanyl Citrate 200 mcg ONCE ONCE 10/20/24 02:00 10/20/24 03:30 DC Lactated Ringer's 500 ml @ 500 mls/hr Q1H ONCE 10/20/24 02:00 10/20/24 03:30 DC Ibuprofen (Motrin Tablet) 600 mg Q6HP PRN 10/20/24 04:00 10/20/24 05:16 600 MG Acetaminophen (Tylenol Tablet) 650 mg Q4HP PRN 10/20/24 04:00 Ondansetron HCl (Zofran) 4 mg Q4HP PRN 10/20/24 04:00 Docusate Sodium (Colace Capsule) 200 mg HS 10/20/24 22:00 Laboratory Tests Test 10/19/24 08:32 10/18/24 23:40 Range/Units Sodium Level 140 136-145 mmol/L Potassium Level 3.8 3.5-5.1 mmol/L Chloride Level 107 98-107 mmol/L Carbon Dioxide Level 22 20-31 mmol/L Anion Gap 11 5-15 Blood Urea Nitrogen 8 L 9-23 mg/dL Creatinine 0.66 0.550-1.02 mg/dL Glomerular Filtration Rate Calc 121 >90 mL/min BUN/Creatinine Ratio 12.1 10.0-20.0 Serum Glucose 104 74-106 mg/dL Uric Acid 5.8 3.1-7.8 mg/dL Calcium Level 9.7 8.7-10.4 mg/dL Total Bilirubin 0.4 0.2-1.0 mg/dL Aspartate Amino Transferase (AST) 55 H 13-40 U/L Alanine Aminotransferase (ALT) 59 H 7-40 U/L Alkaline Phosphatase 161 H 46-116 U/L Total Protein 7.1 5.7-8.2 g/dL Albumin 4.2 3.2-4.8 g/dL White Blood Count 9.9 4.4-10.8 10^3/uL Red Blood Count 4.08 4.0-5.20 10^6/uL Hemoglobin 11.5 L 12.2-16.2 g/dL Hematocrit 34.7 L 36.0-46.0 % Mean Corpuscular Volume 84.9 80.0-100.0 fL Mean Corpuscular Hemoglobin 28.1 28.0-32.0 pg Mean Corpuscular Hemoglobin Concent 33.1 32.0-36.0 g/dL Red Cell Distribution Width 15.3 H 11.8-14.3 % Platelet Count 284 140-450 10^3/uL Mean Platelet Volume 9.8 6.9-10.8 fL Neutrophils (%) (Auto) 74.8 37.0-80.0 % Lymphocytes (%) (Auto) 15.2 10.0-50.0 % Monocytes (%) (Auto) 7.1 0.0-12.0 % Eosinophils (%) (Auto) 2.3 0.0-7.0 % Basophils (%) (Auto) 0.6 0.0-2.0 % Neutrophils # (Auto) 7.4 1.6-8.6 10 ^3/uL Lymphocytes # (Auto) 1.5 0.4-5.4 10 ^3/uL Monocytes # (Auto) 0.7 0-1.3 10 ^3/uL Eosinophils # (Auto) 0.2 0-0.8 10 ^3/uL Basophils # (Auto) 0.1 0-0.2 10 ^3/uL Nucleated Red Blood Cells 0.1 % Prothrombin Time 9.9 9.3-11.8 sec Prothrombin Time INR 0.93 0.9-1.15 Activated Partial Thromboplast Time 27.0 24.5-34.5 SEC Urine Color Yellow Yellow Urine Clarity Turbid H Clear Urine pH 6.0 5.0-9.0 Urine Specific [place] 1.039 H 1.001-1.035 Urine Protein 1+ H Negative Urine Ketones 1+ H Negative Urine Blood Trace H Negative /uL Urine Nitrite Negative Negative Urine Bilirubin Negative Negative Urine Urobilinogen 2 H Negative mg/dL Urine Leukocyte Esterase Negative Negative /uL Urine RBC 3 0 - 4 /hpf Urine Microscopic WBC 2 0-5 /HPF Urine Squamous Epithelial Cells Mod <5 /hpf Urine Calcium Oxalate Crystals Mod None Seen Urine Bacteria Few H None Seen /hpf Urine Mucus Few None Seen Urine Creatinine 243.85 H 30.0-125.0 mg/dL Urine Protein/Creatinine Ratio 0.19 Urine Glucose Normal Normal mg/dL Urine Total Protein 45.7 H 1-14 mg/dL Urine Opiates Screen Neg NEGATIVE Urine Fentanyl Screen Neg NEGATIVE Urine Barbiturates Screen Neg NEGATIVE Urine Phencyclidine Screen Neg NEGATIVE Urine Amphetamines Screen Neg NEGATIVE Urine Benzodiazepines Screen Neg NEGATIVE Urine Cocaine Screen Neg NEGATIVE Urine Cannabinoids Screen Neg NEGATIVE Chlamydia trachomatis (PRECIOUS) Pending Neisseria gonorrhoeae (PRECIOUS) Pending Assessment Assessment IUP at 41w 1d IOL Category 1 FHR Tracing Plan Plan Continue Oxytocin per policy Intrauterine resuscitation PRN Labor analgesia / anesthesia PRN Frequent position change to facilitate labor and descent Supportive care Will consult with Dr Gail DONALDSON Plan discussed with: Patient, Spouse Visit Coding OBGYN Date of Service: Oct 19, 2024 Billing Provider: JOEY ALEMAN CNM COMPLETION SUPERVISOR Common Visit Codes: [id number] INP/OBS CARE(HIGH) COMPLETION SUPERVISOR Procedure Codes: 00399-99- NON-STRESS TEST JOEY ALEMAN CNM Oct 19, 2024 20:17
[2024-10-19] MEDS: ACETAMINOPHEN 325 MG TAB PO ONE (21:40)
[2024-10-19] MEDS: NALBUPHINE HCL 10 MG/1ml INJECTION IV PRN (22:25)
--- NOTE | 2024-10-19 23:28 | DVHPN2 ---
CNM Labor Progress Note Date and Time Seen Date Seen: Oct 19, 2024 Time Seen: 22:00 Subjective Patient reports: No new complaints, Other (Feeling MILLER and contraction pain now stronger. Denies any vision changes, or epigastric pain) Subjective Comment Patient reports feeling MILLER and contraction pain now stronger. Denies any vision changes, or epigastric pain Objective Vital Signs VSS Monitoring Method Monitoring Method: External Heart Rate Heart Rate Baseline: 135 Heart Rate Variability: Moderate Presence of FHR Accelerations: Yes Presence of FHR Decelerations: No Changes in Trends of Patterns: No Are all 5 Components of the FH: Yes Contractions Contractions Frequency: None Duration of Contraction: 70 Contractions Intensity: Moderate Contractions Resting Tone: Relaxed Membranes Membranes: Intact Vaginal Exam Vaginal Exam Dilation: 3 Vaginal Exam Effacement: 50 Vaginal Exam Station: -2 Vaginal Exam Presentation: VTX Vaginal Exam Show: None Medications Medications - Pitocin: Yes Medication - Epidural: No Medication - Other Acetaminophen Nalbuphine hydrochloride Lab Results Lab Results Vital Signs Date Time Temp Pulse Resp B/P (MAP) Pulse Ox O2 Delivery O2 Flow Rate FiO2 10/20/24 05:24 Room Air 10/19/24 23:00 82 19 111/64 I & O 10/20/24 07:00 Intake Total 100 ml Balance 100 ml Intake IV Total 100 ml Current Medications Medications (Trade) Dose Ordered Sig/Zohra Start Time Stop Time Status Last Admin Dose Admin Lactated Ringer's 1,000 ml @ 125 mls/hr Q8H 10/18/24 23:30 10/20/24 03:24 125 MLS/HR Nalbuphine HCl (Nubain) 10 mg Q4HP PRN 10/18/24 23:30 10/20/24 03:30 DC 10/19/24 22:25 10 MG Penicillin G Potassium 50 ml @ 100 mls/hr ONCE ONCE 10/18/24 23:30 10/18/24 23:59 DC 10/19/24 08:54 100 MLS/HR Penicillin G Potassium [id number] units/Dextrose 50 ml @ 100 mls/hr Q4H 10/19/24 03:30 10/19/24 13:34 DC 10/19/24 13:28 100 MLS/HR Liza Greenberg (Arian) 1 pad PRN PRN 10/18/24 23:30 10/19/24 08:54 1 PAD Sodium Lauryl Sulfate (Phisoderm) 240 ml PRN PRN 10/18/24 23:30 10/19/24 08:54 240 ML Benzocaine (Dermoplast) 1 applic PRN PRN 10/18/24 23:30 10/19/24 08:54 1 APPLIC Misoprostol (Cytotec) 50 mcg Q4HPRN PRN 10/18/24 23:30 10/20/24 03:30 DC 10/19/24 01:00 50 MCG Diphenoxylate HCl/ Atropine (Lomotil Tablet) 5 mg ONCE ONCE 10/19/24 07:15 10/20/24 03:30 DC 10/19/24 08:30 5 MG Oxytocin 1,000 ml @ 6 ml/hr Q24H 10/19/24 12:15 10/20/24 03:30 DC 10/19/24 13:04 6 ML/HR Oxytocin 500 ml @ 999 mls/hr Q31M ONCE 10/19/24 12:15 10/20/24 03:30 DC 10/20/24 03:22 999 MLS/HR Oxytocin 500 ml @ 125 mls/hr Q4H ONCE 10/19/24 12:45 10/20/24 03:30 DC 10/20/24 03:23 125 MLS/HR Penicillin G Potassium [id number] units/Dextrose 50 ml @ 100 mls/hr Q4H 10/19/24 17:30 10/20/24 03:30 DC 10/19/24 21:41 100 MLS/HR Acetaminophen (Tylenol Tablet) 650 mg ONCE ONCE 10/19/24 21:30 10/20/24 03:30 DC 10/19/24 21:40 650 MG Methylergonovine Maleate (Methergine) 0.2 mg ONCE ONCE 10/20/24 00:30 10/20/24 03:30 DC Naloxone HCl (Narcan) 0.2 mg PRN ONCE 10/20/24 02:00 10/20/24 03:30 DC Ephedrine Sulfate (ePHEDrine SULFATE) 10 mg PRN ONCE 10/20/24 02:00 10/20/24 03:30 DC Fentanyl Citrate 200 mcg ONCE ONCE 10/20/24 02:00 10/20/24 03:30 DC Lactated Ringer's 500 ml @ 500 mls/hr Q1H ONCE 10/20/24 02:00 10/20/24 03:30 DC Ibuprofen (Motrin Tablet) 600 mg Q6HP PRN 10/20/24 04:00 10/20/24 05:16 600 MG Acetaminophen (Tylenol Tablet) 650 mg Q4HP PRN 10/20/24 04:00 Ondansetron HCl (Zofran) 4 mg Q4HP PRN 10/20/24 04:00 Docusate Sodium (Colace Capsule) 200 mg HS 10/20/24 22:00 Laboratory Tests Test 10/19/24 08:32 10/18/24 23:40 Range/Units Sodium Level 140 136-145 mmol/L Potassium Level 3.8 3.5-5.1 mmol/L Chloride Level 107 98-107 mmol/L Carbon Dioxide Level 22 20-31 mmol/L Anion Gap 11 5-15 Blood Urea Nitrogen 8 L 9-23 mg/dL Creatinine 0.66 0.550-1.02 mg/dL Glomerular Filtration Rate Calc 121 >90 mL/min BUN/Creatinine Ratio 12.1 10.0-20.0 Serum Glucose 104 74-106 mg/dL Uric Acid 5.8 3.1-7.8 mg/dL Calcium Level 9.7 8.7-10.4 mg/dL Total Bilirubin 0.4 0.2-1.0 mg/dL Aspartate Amino Transferase (AST) 55 H 13-40 U/L Alanine Aminotransferase (ALT) 59 H 7-40 U/L Alkaline Phosphatase 161 H 46-116 U/L Total Protein 7.1 5.7-8.2 g/dL Albumin 4.2 3.2-4.8 g/dL White Blood Count 9.9 4.4-10.8 10^3/uL Red Blood Count 4.08 4.0-5.20 10^6/uL Hemoglobin 11.5 L 12.2-16.2 g/dL Hematocrit 34.7 L 36.0-46.0 % Mean Corpuscular Volume 84.9 80.0-100.0 fL Mean Corpuscular Hemoglobin 28.1 28.0-32.0 pg Mean Corpuscular Hemoglobin Concent 33.1 32.0-36.0 g/dL Red Cell Distribution Width 15.3 H 11.8-14.3 % Platelet Count 284 140-450 10^3/uL Mean Platelet Volume 9.8 6.9-10.8 fL Neutrophils (%) (Auto) 74.8 37.0-80.0 % Lymphocytes (%) (Auto) 15.2 10.0-50.0 % Monocytes (%) (Auto) 7.1 0.0-12.0 % Eosinophils (%) (Auto) 2.3 0.0-7.0 % Basophils (%) (Auto) 0.6 0.0-2.0 % Neutrophils # (Auto) 7.4 1.6-8.6 10 ^3/uL Lymphocytes # (Auto) 1.5 0.4-5.4 10 ^3/uL Monocytes # (Auto) 0.7 0-1.3 10 ^3/uL Eosinophils # (Auto) 0.2 0-0.8 10 ^3/uL Basophils # (Auto) 0.1 0-0.2 10 ^3/uL Nucleated Red Blood Cells 0.1 % Prothrombin Time 9.9 9.3-11.8 sec Prothrombin Time INR 0.93 0.9-1.15 Activated Partial Thromboplast Time 27.0 24.5-34.5 SEC Urine Color Yellow Yellow Urine Clarity Turbid H Clear Urine pH 6.0 5.0-9.0 Urine Specific [place] 1.039 H 1.001-1.035 Urine Protein 1+ H Negative Urine Ketones 1+ H Negative Urine Blood Trace H Negative /uL Urine Nitrite Negative Negative Urine Bilirubin Negative Negative Urine Urobilinogen 2 H Negative mg/dL Urine Leukocyte Esterase Negative Negative /uL Urine RBC 3 0 - 4 /hpf Urine Microscopic WBC 2 0-5 /HPF Urine Squamous Epithelial Cells Mod <5 /hpf Urine Calcium Oxalate Crystals Mod None Seen Urine Bacteria Few H None Seen /hpf Urine Mucus Few None Seen Urine Creatinine 243.85 H 30.0-125.0 mg/dL Urine Protein/Creatinine Ratio 0.19 Urine Glucose Normal Normal mg/dL Urine Total Protein 45.7 H 1-14 mg/dL Urine Opiates Screen Neg NEGATIVE Urine Fentanyl Screen Neg NEGATIVE Urine Barbiturates Screen Neg NEGATIVE Urine Phencyclidine Screen Neg NEGATIVE Urine Amphetamines Screen Neg NEGATIVE Urine Benzodiazepines Screen Neg NEGATIVE Urine Cocaine Screen Neg NEGATIVE Urine Cannabinoids Screen Neg NEGATIVE Chlamydia trachomatis (PRECIOUS) Pending Neisseria gonorrhoeae (PRECIOUS) Pending Assessment Assessment IUP at 41weeks Category 1 FHR Tracing Plan Plan Continue current plan Frequent position change to facilitate labor and descent Intrauterine resuscitation PRN Labor analgesia / anesthesia PRN Supportive care Anticipate Consult with Dr Reynolds PRN Plan discussed with: Patient, Spouse Visit Coding OBGYN Date of Service: Oct 19, 2024 Billing Provider: JOEY ALEMAN CNM [employer]OP[employer] OFFICER Common Visit Codes: [id number] INP/OBS CARE(HIGH) [employer]OPMENT OFFICER Procedure Codes: 05807-91- NON-STRESS TEST JOYE ALEMAN CNM Oct 19, 2024 23:28
[2024-10-20] MEDS: METHYLERGONOVINE MALEATE 0.2 MG/ML AMP IM ONE (00:30)
[2024-10-20] MEDS: ePHEDrine SULFATE 50 MG/ML AMP IV ONE (02:00)
[2024-10-20] MEDS: fentaNYL CITRATE 100 MCG/2 ML VL IV ONE (02:00)
[2024-10-20] MEDS: LACTATED RINGER'S 500 ML IV ONE (02:00)
[2024-10-20] MEDS: ROPIVACAINE HCL 0 ML ONE (02:00)
[2024-10-20] MEDS: NALOXONE HCL 0.4 MG/ML VIAL IV ONE (02:00)
--- NOTE | 2024-10-20 03:20 | LDN2 ---
Labor and Delivery Note Date 10/20/24 Age 29 4 Para 3 AB 0 EDC 10/11/24 EGA 41w 2d Diagnosis IUP at 41w 2d Vaginal Delivery: VTX Vacuum Assisted: No Placenta: Spontaneous Sex: Female Weight 2650g (5Lbs 13oz) Apgars 8 & 9 @ one and five minutes of life respectively Nuchal Cord Transected: No Amniotic Fluid: Clear Episiotomy: No (About 1cm linear abrasion noted in left labium, not bleeding) Extension: No Repaired with Not indicated EBL 150mLs Labs Laboratory Tests 10/17/24 15:23: Hepatitis B Surface Antigen Negative, HIV (1&2) Antibody Negative 05/04/16 16:40: Rubella Antibody Positive Blood Bank 10/18/24 23:40: Blood Type O POSITIVE Complications None Conditions Mother and baby stable [employer] Durga Comments/Significant Med Angie At 02:20,29yo, now delivered a viable Female infant by w/ score 8 and 9 at one & five minutes of life respectively. GRETEL position placed skin to skin on pts chest. Cord clamped and cut after pulsation ceased. Cord blood sent. Intact 3-vessel cord placenta delivered spontaneously, Radha. Pitocin IV bolus started. Placenta sent to pathology. About 1cn linear abrasion noted in left labium, not bleeding; requires no repair Cervix/vagina inspected via SSE. Cervix and vagina intact. Fundus at U, firm, midline, and light lochia. QBL 150ml. VSS. Count correct x2. Patient to care and baby to couplet care, both stable. Visit Coding OBGYN Date of Service: Oct 20, 2024 Billing Provider: JOEY ALEMAN CNM [employer] CHECKER Common Visit Codes: [id number] INP/OBS CARE(HIGH) [employer] CHECKER Procedure Codes: [id number] DELIVERY ONLY JOEY ALEMAN CNM Oct 20, 2024 03:20
[2024-10-20] MEDS: LACT. RINGERS/OXYTOCIN 20UNITS 500 ML IV ONE ×2 (03:22→03:23)
[2024-10-20] MEDS ORDERED: ACETAMINOPHEN 325 MG TAB PO PRN (04:00)
[2024-10-20] MEDS ORDERED: ONDANSETRON HCL 4 MG/2 ML VIAL IV PRN (04:00)
[2024-10-20] MEDS: IBUPROFEN 600 MG TAB PO PRN (05:16)
[2024-10-20 07:00] VITALS: BP 118/59; PULSE 95; RESP 16; TEMP 98.7; O2SAT 96
[2024-10-20 11:00] VITALS: BP 115/69; PULSE 100; RESP 16; TEMP 98.7; O2SAT 97
[2024-10-20 15:15] VITALS: BP 119/72; PULSE 94; RESP 18; TEMP 98; O2SAT 97
[2024-10-20 19:00] VITALS: BP 117/65; PULSE 100; RESP 16; TEMP 98.3; O2SAT 98
[2024-10-20] MEDS: DOCUSATE SOD 100 MG CAP PO SCH (22:26)
[2024-10-20 22:42] VITALS: BP 109/64; PULSE 97; RESP 18; TEMP 97.8; O2SAT 98
[2024-10-21 02:29] VITALS: BP 112/68; PULSE 94; RESP 18; TEMP 98.2
[2024-10-21 02:59] VITALS: BP 112/68; PULSE 94; RESP 18; TEMP 98.2
--- NOTE | 2024-10-21 03:46 | DVHDS2 ---
Obstetrics Discharge Summary Obstetrics Discharge Summary Date of Admission: Oct 19, 2024 Date of Discharge: Oct 21, 2024 Reason For Admission: Induction of Labor Procedures: None Intrapartum Procedures: Spontaneous vaginal deliv Procedures: None Operative Complicat: None Discharge Diagnosis: Term -Delivered Discharge Information: Activity (Pelvic rest), Diet (Routine), Medications (Motrin, Colace, vits), Instructions (Routine), Discharge to (Home) Visit Coding OBGYN Date of Service: Oct 21, 2024 Billing Provider: RIC JOHNSON CNM WELL [employer]GGER Common Visit Codes: 75440-JPI/OBS DISCH DAY >30MIN WELL LOGGER Procedure Codes: [id number] DEL INCLUDING RIC JOHNSON CNM Oct 21, 2024 03:46
--- NOTE | 2024-10-21 03:49 | DVHPN2 ---
Chief Complaints Patient reports: No new complaints (Coping well. Denies any sx. Ambulates and voids freely. Desires to go home. Denies blues) Nursing reports: No new complaints Objective Vitals Vital Signs Date Time Temp Pulse Resp B/P (MAP) Pulse Ox O2 Delivery O2 Flow Rate FiO2 10/21/24 02:59 98.2 94 18 112/68 (83) 98.2 10/20/24 22:42 98 10/20/24 19:00 Room Air Medications Current Medications Medications (Trade) Dose Ordered Sig/Zohra Route PRN Reason Start Time Stop Time Status Last Admin Acetaminophen (Tylenol Tablet) 650 mg Q4HP PRN PO MILD PAIN (1-3 PAIN SCALE) 10/20/24 04:00 Docusate Sodium (Colace Capsule) 200 mg HS PO 10/20/24 22:00 10/20/24 22:26 Ibuprofen (Motrin Tablet) 600 mg Q6HP PRN PO MODERATE PAIN (4-6 PAIN SCALE) 10/20/24 04:00 10/20/24 05:16 Ondansetron HCl (Zofran) 4 mg Q4HP PRN IV NAUSEA / VOMITING 10/20/24 04:00 General: Normal Lungs: Normal, Normal breath sounds, Lungs clear Cardiovascular: Normal, Regular rate and rhythm Abdominal: Normal (Fundus firm, 1fb below umbilicus, non tender) Musculoskeletal: Normal Extremities: Normal (Karlene's neg) Skin: Normal Others Breast soft, nipples intact Perineum without edema, lochia minimal, no odor Studies Laboratory Tests 10/19/24 08:32 10/18/24 23:40 Test 10/19/24 08:32 Range/Units Serum Glucose 104 74-106 mg/dL Ass/Plan Assessment 1st PP day Desires to go home Plan D/c home with instructions RTC 2 weeks and PRN RIC JOHNSON CNM Oct 21, 2024 03:49
[2024-10-21 07:00] VITALS: BP 113/68; PULSE 83; RESP 16; TEMP 98.2; O2SAT 100
[2024-10-21 11:00] VITALS: BP 115/62; PULSE 70; RESP 18; TEMP 98.3; O2SAT 98
[2024-10-22 06:03] LABS: Chlamydia Trachomatis, NAA Negative (Negative); Neisseria gonorrhoeae, NAA Negative (Negative)
== END 2024-10-21 12:20 | disposition home or self-care (01) | DRG 560 ==
LOC: LDRP 23:00 → NUR 10-20 09:23 → LDRP 10-20 09:26
PROVIDERS: ADMIT Obstetrics & Gynecology; ATTEND Obstetrics & Gynecology
PROC: 10E0XZZ Delivery of Products of Conception, External Approach (ICD-10-PCS; principal; 2024-10-20)
DX: O48.0 Post-term pregnancy (principal); Z37.0 Single live birth; O71.89 Other specified obstetric trauma; Z3A.41 41 weeks gestation of pregnancy
CPT/HCPCS: 36415; 59409; 80053; 80307; 81001; 81002; 82570; 84156; 84550; 85025; 85610; 85730; 86850; 86900; 86901; 94760; 94762; 96360; 96361; 96365; 96366; 96374; G0378; J2540; J2590; J7060